=== PATIENT | female | born 1995 | race Caucasian/White ===

== ENCOUNTER 2020-09-18 14:13 | Emergency (ER) | payer OTHER ==
[~2020-09-18] VITALS: Ht 162.6 cm; Wt 62.5 kg
[2020-09-18] MEDS ORDERED: NEXP1IMP SC (14:49)
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
[2020-09-18] MEDS ORDERED: diphenhydrAMINE 50MG/ML VIAL (J1200) IV STA (16:23)
[2020-09-18] MEDS ORDERED: NS 1,000 ML IV ONE (16:25)
[2020-09-18] MEDS ORDERED: LIDOCAINE 4% CREAM 5GM (LMX4) TOP ONE (16:25)
[2020-09-18] MEDS ORDERED: METOCLOPRAMIDE INJ 10MG/2ML VIAL (J2765 PER 1) IV ONE (16:25)
[2020-09-18] MEDS ORDERED: KETOROLAC 30 MG/ML 1ML VIAL IV ONE (16:25)
[2020-09-18] MEDS ORDERED: NAPR-837 PO (17:27)
[2020-09-18] MEDS ORDERED: ANEC4CRE3 TOP (17:27)
[2020-09-18] MEDS ORDERED: METH-1165 PO (17:27)
[2020-09-18] MEDS ORDERED: methocarbamoL 750 MG TAB PO ONE (17:30)
[2020-09-18 18:07] VITALS: BP 110/58
== END 2020-09-18 18:15 | disposition home or self-care (01) ==
LOC: M ED 14:13
DX: S06.0X0A Concussion without loss of consciousness, initial encounter (principal); S16.1XXA Strain of muscle, fascia and tendon at neck level, initial encounter; V49.50XA Passenger injured in collision with unspecified motor vehicles in traffic accident, initial encounter; Y92.9 Unspecified place or not applicable; Y93.9 Activity, unspecified; Y99.9 Unspecified external cause status
CPT/HCPCS: 70450; 72125; 96361; 96374; 96375; 99284; J1200; J1885; J2765

== ENCOUNTER 2021-02-27 15:57 | Emergency (ER) | payer OTHER ==
[~2021-02-27] VITALS: Ht 162.6 cm; Wt 67.7 kg
[~2021-02-27 15:57] MED LIST: ANEC4CRE3 TOP; METH-1165 PO; NAPR-837 PO; NEXP1IMP SC
--- OUTSIDE RECORDS SUMMARY | 2021-02-27 16:05 | CCD ---
Author Author [facility] Organization [facility] Address Unknown Phone Unavailable Care Team Providers Care Calibration Specialist Name Role Phone Rajesh-Centner, Shelby Unavailable Unavailable Rajesh-Centner, Shelby Unavailable Unavailable Rajesh-Centner, Shelby Unavailable Unavailable Rajesh-Centner, Shelby Unavailable Unavailable Rajesh-Centner, Shelby Unavailable Unavailable Rajesh-Centner, Shelby Unavailable Unavailable Rajesh-Centner, Shelby Unavailable Unavailable Rajesh-Centner, Shelby Unavailable Unavailable Rajesh-Centner, Shelby Unavailable Unavailable Rajesh-Centner, Shelby Unavailable Unavailable Rajesh-Centner, Shelby Unavailable Unavailable Lind, Peral[place] Laina Unavailable Unavailable Lind, Peralta Laina Unavailable Unavailable Lind, Peralta Laina Unavailable Unavailable Lind, Peralta Laina Unavailable Unavailable Lind, Peralta Laina Unavailable Unavailable Lind, Peralta Laina Unavailable Unavailable Lind, Peralta Laina Unavailable Unavailable Lind, P[place] Laina Unavailable Unavailable Lind, P[place] Laina Unavailable Unavailable Lind, Peral[place] Laina Unavailable Unavailable Lind, Peral[place] Laina Unavailable Unavailable Lind, Peral[place] Laina Unavailable Unavailable Lind, Peralta Laina Unavailable Unavailable Re-disclosure Warning The records that you are about to access may contain information from federally-assisted alcohol or drug abuse programs. If such information is present, then the following federally mandated warning applies: This information has been disclosed to you from records protected by federal confidentiality rules (42 CFR part 2). The federal rules prohibit you from making any further disclosure of this information unless further disclosure is expressly permitted by the written consent of the person to whom it pertains or as otherwise permitted by 42 CFR part 2. A general authorization for the release of medical or other information is NOT sufficient for this purpose. The Federal rules restrict any use of the information to criminally investigate or prosecute any alcohol or drug abuse patient.The records that you are about to access may contain highly sensitive health information, the redisclosure of which is protected by Article 27-F of the [place] [facility] Public Health law. If you continue you may have access to information: Regarding HIV / AIDS; Provided by facilities licensed or operated by the [facility] Office of Mental Health; or Provided by the [facility] Office for People With Developmental Disabilities. If such information is present, then the following [facility] mandated warning applies: This information has been disclosed to you from confidential records which are protected by state law. State law prohibits you from making any further disclosure of this information without the specific written consent of the person to whom it pertains, or as otherwise permitted by law. Any unauthorized further disclosure in violation of state law may result in a fine or longterm sentence or both. A general authorization for the release of medical or other information is NOT sufficient authorization for further disc losure. Allergies and Adverse Reactions Type Description Substance Reaction Status Data Source(s ) Allergy to substance Allergy to substance Allergy to substance [place] ([facility]) Allergy to substance Allergy to substance Allergy to substance [place] ([facility]) Encounters Encounter Providers Location Date Indications Data Source(s ) [facility]: [address] [place] [address], Ph. Attender: Shelby Hooper [facility] Medical 08/11/2020 12:00:00 AM EDT [facility] ([facility]) TATIANNA Silva: [address] [place] [address], Ph. Attender: Laina Lind [facility] Medical 07/15/2020 12:00:00 AM EDT [facility] ([facility]) NOBLE [facility]: [address] [place] [address], Ph. Attender: Laina Lind [place] - [facility] Medical 07/15/2020 12:00:00 AM EDT [place] ([facility]) Immunizations Vaccine Date Status Description Data Source(s) COVID-19, mRNA, LNP-S, PF, 100 mcg/0.5 mL dose 08/11/2020 07 :06:22 PM EDT completed 10.5 mL [place] ([facility]) COVID-19 VACCINE Moderna 08/11/2020 12:00:00 AM EDT completed [facility] Vaccine Series Complete: YESThis Data wa s Submitted to [facility] [employer]. COVID-19, mRNA, LNP-S, PF, 100 mcg/0.5 mL dose 07/16/2020 07 :45:47 AM EDT completed 10.5 mL [facility] ([facility]) COVID-19, mRNA, LNP-S, PF, 100 mcg/0.5 mL dose 07/16/2020 07 :45:47 AM EDT completed 10.5 mL [facility] ([facility]) COVID-19 VACCINE Moderna 07/16/2020 12:00:00 AM EDT completed [facility] Vaccine Series Complete: NOThis Data was Submitted to [facility] [employer]. Medications Medication Brand Name Start Date Product Form Dose Route Admi nistrative Instructions Pharmacy Instructions Status Indications Reaction Description Data Source(s) 750 mg 09/18/2020 12:00:00 AM EDT tablet 15 TAKE ONE TABLET BY MOUTH THREE TIMES A DAY TAKE ONE TABLET BY MOUTH THREE TIMES A DAY SOLD: 09/23/2020 [facility] 500 mg 09/18/2020 12:00:00 AM EDT tablet 30 TAKE ONE TABLET BY MOUTH TWO TIMES A DAY WITH FOOD TAKE ONE TABLET BY MOUTH TWO TIMES A DAY WITH FOOD [facility] Insurance Providers Payer name Policy type / Coverage type Policy ID Covered green party ID Covered green party's relationship to ruelas Policy Ruelas Plan Information [facility] [employer] [id number] [employer] [id number] SP [id number] [employer] [id number] SP [id number] Problems, Conditions, and Diagnoses No Information Surgeries/Procedures No Information Results ID Date Data Source [id number] 11/18/2020 10:25:00 AM EDT [facility] Name Value Range Interpretation Code Description Data Melania rce(s) Supporting Document(s) SARS coronavirus 2 RNA Not Detected [facility] [place] This lab was ordered by [facility] [[email or web address]] [facility] and reported by [facility]. ID Date Data Source [id number] 05/04/2020 08:53:00 AM EST [facility] Name Value Range Interpretation Code Description Data Melania rce(s) Supporting Document(s) SARS coronavirus 2 RNA Not Detected [facility] [place] This lab was ordered by [facility] and reported by [facility]. Procedure Social History No Information
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
--- OUTSIDE RECORDS SUMMARY | 2021-02-27 18:10 | CCD ---
Author Author [facility] Organization [facility] Address Unknown Phone Unavailable Care Team Providers Care Ship'S Carpenter Name Role Phone Rajesh-Centner, Shelby Unavailable Unavailable Rajesh-Centner, Shelby Unavailable Unavailable Rajesh-Centner, Shelby Unavailable Unavailable Rajesh-Centner, Shelby Unavailable Unavailable Rajesh-Centner, Shelby Unavailable Unavailable Rajesh-Centner, Shelby Unavailable Unavailable Rajesh-Centner, Shelby Unavailable Unavailable Rajesh-Centner, Shelby Unavailable Unavailable Rajesh-Centner, Shelby Unavailable Unavailable Rajesh-Centner, Shelby Unavailable Unavailable Rajesh-Centner, Shelby Unavailable Unavailable Lind, [place] Laina Unavailable Unavailable Lind, [place] Laina Unavailable Unavailable Lind, [place] Laina Unavailable Unavailable Lind, [place] Laina Unavailable Unavailable Lind, [place] Laina Unavailable Unavailable Lind, [place] Laina Unavailable Unavailable Lind, [place] Laina Unavailable Unavailable Lind, [place] Laina Unavailable Unavailable Lind, [place] Laina Unavailable Unavailable Lind, [place] Laina Unavailable Unavailable Lind, [place] Laina Unavailable Unavailable Lind, [place] Laina Unavailable Unavailable Lind, [place] Laina Unavailable Unavailable Re-disclosure Warning The records [...] is protected by Article 27-F of the [facility] Public Health law. If you continue you may have access to information: Regarding HIV / AIDS; Provided by facilities licensed or operated by the [facility] Office of Mental Health; or Provided by the [facility] Office for People With Developmental Disabilities. If such information is present, then the following [facility] mandated warning applies: This information has been [...] law may result in a fine or penitentiary sentence or both. A general authorization for the release of medical or other information is NOT sufficient authorization for further disc losure. Allergies and Adverse Reactions Type Description Substance Reaction Status Data Source(s ) Allergy to substance Allergy to substance Allergy to substance [place] ([facility]) Allergy to substance Allergy to substance Allergy to substance [place] ([facility]) Encounters Encounter Providers Location Date Indications Data Source(s ) [facility]: [address] [place] [address], Ph. Attender: Shelby Hooper [facility] Medical 08/11/2020 12:00:00 AM EDT [facility] ([facility]) TATIANNA Silva: [address] [place] [address], Ph. Attender: Laina Lind [facility] Medical 07/15/2020 12:00:00 AM EDT [facility] ([facility]) NOBLE [facility]: [address] [place] [address], Ph. Attender: Laina Lind [place] - [facility] Medical 07/15/2020 12:00:00 AM EDT [place] ([facility]) Immunizations Vaccine Date Status Description Data Source(s) COVID-19, mRNA, LNP-S, PF, 100 mcg/0.5 mL dose 08/11/2020 07 :06:22 PM EDT completed 10.5 mL [place] ([facility]) COVID-19 VACCINE Moderna 08/11/2020 12:00:00 AM EDT completed [facility] Vaccine Series Complete: YESThis Data wa s Submitted to [facility] Via [employer]. COVID-19, mRNA, LNP-S, PF, 100 mcg/0.5 mL dose 07/16/2020 07 :45:47 AM EDT completed 10.5 mL [facility] ([facility]) COVID-19, mRNA, LNP-S, PF, 100 mcg/0.5 mL dose 07/16/2020 07 :45:47 AM EDT completed 10.5 mL [facility] ([facility]) COVID-19 VACCINE Moderna 07/16/2020 12:00:00 AM EDT completed [facility] Vaccine Series Complete: NOThis Data was Submitted to [facility] Via [employer]. Medications Medication Brand Name Start Date Product [...] type / Coverage type Policy ID Covered constitution party ID Covered constitution party's relationship to ruelas Policy Ruelas Plan Information [facility] ACTIVE DUTY [id number] [employer] [id number] SP [id number] [employer] [id number] SP [id number] Problems, Conditions, and Diagnoses No Information Surgeries/Procedures No Information Results ID Date Data Source [id number] 11/18/2020 10:25:00 AM EDT [facility] Name Value Range Interpretation Code Description Data Melania rce(s) Supporting Document(s) SARS coronavirus 2 RNA Not Detected [facility] [place] This lab was ordered by [facility] [facility] and reported by [facility]. ID Date Data Source [id number] 05/04/2020 08:53:00 AM EST [facility] Name Value Range Interpretation Code Description Data Melania rce(s) Supporting Document(s) SARS coronavirus 2 RNA Not Detected [facility] [place] This lab was ordered by [facility] and reported by [facility]. Procedure Social History No Information
[2021-02-27 19:41] VITALS: BP 118/58
[2021-02-27] MEDS ORDERED: ACET1TAB16 PO (19:49)
[2021-02-27] MEDS ORDERED: ACETAMINOPH W/CODEINE #3 TAB UD PO ONE (19:50)
== END 2021-02-27 20:02 | disposition home or self-care (01) ==
LOC: M ED 15:57
DX: S82.65XA Nondisplaced fracture of lateral malleolus of left fibula, initial encounter for closed fracture (principal); S92.215A Nondisplaced fracture of cuboid bone of left foot, initial encounter for closed fracture; W17.89XA Other fall from one level to another, initial encounter; Y92.009 Unspecified place in unspecified non-institutional (private) residence as the place of occurrence of the external cause; Y93.9 Activity, unspecified; Y99.9 Unspecified external cause status

== ENCOUNTER 2021-09-20 23:05 | Emergency (ER) | payer OTHER ==
[~2021-09-20] VITALS: Ht 162.6 cm; Wt 68.2 kg
[~2021-09-20 23:05] MED LIST changes: +ACET300T48 PO
[2021-09-21 08:19] LABS: BASO % 0.9 % (0.0-1.0); EOS % 3.2 % (0.0-3.0); HEMATOCRIT 35.8 % (36.0-47.0); LYMPH # 2.2 10^3/uL (1.5-5.0); MEAN CORPUSCULAR HEMOGLOBIN 31.7 pg (27.0-33.0); MEAN CORPUSCULAR HGB CONC 33.5 g/dl (32.0-36.5); MEAN CORPUSCULAR VOLUME 94.7 fl (80.0-96.0); MONO % 8.4 % (2.0-8.0); NEUTROPHILS # 1.9 10^3/uL (1.5-8.5); NEUTROPHILS % 40.3 % (36.0-66.0); PLATELET COUNT, AUTOMATED 224 10^3/uL (150-450); RED BLOOD COUNT 3.78 10^6/uL (4.00-5.40); WHITE BLOOD COUNT 4.6 10^3/uL (4.0-10.0)
[2021-09-21 08:20] LABS: EOS # 0.2 10^3/uL (0.0-0.5); MONO # 0.4 10^3/uL (0.0-0.8)
[2021-09-21 09:03] LABS: FREE T4 1.03 NG/DL (0.76-1.46); THYROID STIMULATING HORMONE 1.71 uIU/ML (0.358-3.740)
[2021-09-21 09:58] VITALS: BP 109/57
== END 2021-09-21 09:59 | disposition home or self-care (01) ==
LOC: M ED 23:05
DX: R07.9 Chest pain, unspecified (principal); R00.1 Bradycardia, unspecified; F10.10 Alcohol abuse, uncomplicated; Z79.899 Other long term (current) drug therapy